=== PATIENT | male | born 1960 | race Caucasian/White ===

== ENCOUNTER 2018-03-26 11:15 | Emergency (ER) | payer OTHER ==
[~2018-03-26] VITALS: Ht 172.7 cm; Wt 64.4 kg
--- NOTE | 2018-03-26 12:13 | NUR ---
Patient discharged to home in stable conditon. Written and verbal after care instructions given. Patient verbalizes understanding of instructions.pt walks in steady gait, no sign of distress. pt accompanied by son
== END 2018-03-26 12:17 | disposition home or self-care (01) ==
LOC: ER 11:15
DX: J40 Bronchitis, not specified as acute or chronic (principal); R51 Headache; J90 Pleural effusion, not elsewhere classified
CPT/HCPCS: 71045; A4663

== ENCOUNTER 2025-01-23 11:14 | Emergency (ER) | payer BC, OTHER ==
[~2025-01-23] VITALS: Ht 172.7 cm; Wt 66.2 kg
[2025-01-23] MEDS ORDERED: ONDANSETRON 4 MG/2 ML VIAL ONE (12:57)
[2025-01-23] MEDS ORDERED: CLINDAMYCIN 600 MG PIGGYBACK**ER OMNI IV ONE (12:58)
[2025-01-23] MEDS ORDERED: MORPHINE SULFATE 4 MG/1 ML DISP.SYRIN ONE (12:58)
[2025-01-23 13:02] LABS: PLATELET COUNT (AUTO) 238 K/uL (152-348); RED BLOOD CELL COUNT(AUTO) 5.07 MIL/uL (4.06-5.63); RED CELL DISTRIBUTION WIDTH 14.1 % (12.1-16.2); WHITE BLOOD COUNT (AUTO) 8.5 K/uL (3.6-10.2)
[2025-01-23 13:03] LABS: *BILIRUBIN,URIN NEGATIVE (NEGATIVE); *BLOOD, URINE NEGATIVE (NEGATIVE); *CLARITY,URINE CLEAR (CLEAR); *COLOR,URINE YELLOW (YELLOW); *KETONES,URINE 1+ (NEGATIVE); *PROTEIN,URINE 2+ (NEGATIVE); *UROBILINOGEN,URINE 0.2 E.U./dl (NORMAL); LEUKOCYTE ESTERASE ,URINE NEGATIVE (NEGATIVE); NITRITE, URINE NEGATIVE (NEGATIVE); UGLUCOSE NEGATIVE (NEGATIVE)
[2025-01-23 13:05] LABS: URINE AMORPHOUS PHOSPHATES MODERATE /HPF
[2025-01-23 13:09] LABS: CREATININE 0.8 mg/dL (0.6-1.3); SODIUM SERUM 141 mmol/L (136-145); UREA NITROGEN, BLOOD 11 mg/dL (7-18)
[2025-01-23 13:14] LABS: ASPARTATE AMINOTRANSFERASE 15 U/L (15-37); TOTAL PROTEIN, SERUM 8.0 g/dL (6.4-8.2)
[2025-01-23] MEDS: ONDANSETRON 4 MG/2 ML VIAL IV ONE (13:18)
[2025-01-23] MEDS: MORPHINE SULFATE 2 MG/1 ML DISP.SYRIN IV ONE (13:18)
[2025-01-23] MEDS: IV NORMAL SALINE 1000 ML BAG IV ONE (13:31)
[2025-01-23] MEDS: CLINDAMYCIN PHOSPHATE IV 600 MG in IV DEXTROSE 5% 100 ML IV ONE (13:32)
[2025-01-23] MEDS ORDERED: AMLO10TA4 PO (18:20)
[2025-01-23] MEDS ORDERED: LOSA100T31 PO (18:20)
[2025-01-23 18:42] VITALS: BP 161/75; TEMP 98.2; O2SAT 97
== END 2025-01-23 18:48 | disposition home or self-care (01) ==
LOC: ER 11:14
DX: I10 Essential (primary) hypertension (principal); R07.9 Chest pain, unspecified; R51.9 Headache, unspecified; F12.10 Cannabis abuse, uncomplicated; F17.200 Nicotine dependence, unspecified, uncomplicated; Z79.899 Other long term (current) drug therapy; Z88.7 Allergy status to serum and vaccine
CPT/HCPCS: 99285; 96374; 96375; 70450; 96361; 71045; 80076; 80048; 81001; 83880; 85025; 84145; 85730; 87040 ×2; 87086; 84484; 36415; 93005; 96376; 83605; J3490 ×2; J0360 ×2; J2405; J2270; J7040; 87077; A4606; A4663